=== PATIENT | male | born 1940 | race Caucasian/White ===

== ENCOUNTER → 2020-05-23 | Outpatient (CLI) | payer OTHER ==
[~2020-05-23] MED LIST: ATORVASTATIN CA20 MG PO; CARAFATE 1 GM TA1 GM PO; DOCUSATE SODIU100 MG PO; ELIQUIS 2.5 MG2.5 MG PO; FLOMAX 0.4 MG0.4 MG PO; LO-DOSE ASPIRIN81 MG PO; LOPRESSOR 25 MG25 MG PO; MOBIC15 MG PO; NORCO 10-325 T1 EACH PO; OMEPRAZOLE20 M1 PO
[2020-05-23 12:05] LABS: BUN/CREATININE RATIO 31 (0-10)
== END ==
LOC: LAB 11:21
PROVIDERS: Orthopaedic Surgery
DX: Z53.8 Procedure and treatment not carried out for other reasons (principal)
CPT/HCPCS: 80048; 86850; 86900; 86901

== ENCOUNTER 2020-05-24 06:55 | Day surgery (SDC) | payer OTHER ==
[~2020-05-24] VITALS: Ht 175.3 cm; Wt 88.5 kg
[2020-05-24] MEDS ORDERED: LO-DOSE ASPIRIN81 MG PO (07:45)
[2020-05-24] MEDS ORDERED: ATORVASTATIN CA20 MG PO (07:45)
[2020-05-24] MEDS ORDERED: CARAFATE 1 GM TA1 GM PO (07:46)
[2020-05-24] MEDS ORDERED: LOPRESSOR 25 MG25 MG PO (07:46)
[2020-05-24] MEDS ORDERED: FLOMAX 0.4 MG0.4 MG PO (07:47)
[2020-05-24] MEDS ORDERED: OMEPRAZOLE20 M1 PO (07:47)
[2020-05-24] MEDS ORDERED: MOBIC15 MG PO (07:48)
[2020-05-25 05:56] LABS: HEMOGLOBIN 13.5 gm/dl (14.0-17.5); RED BLOOD COUNT 4.5 M/UL (4.20-5.50); WHITE BLOOD COUNT 11.1 K/UL (4.5-11.0)
[2020-05-25 06:13] LABS: BUN/CREATININE RATIO 33 (0-10)
[2020-05-25] MEDS ORDERED: NORCO 10-325 T1 EACH PO (08:31)
--- NOTE | 2020-05-25 13:00 | NUR ---
BLADDER SCANNED PT AT 1150 DUE TO LACK OF URINE OUTPUT. 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 THIS WAS UNSUCCESSFUL . RECEIVED VERBAL ORDER TO STRAIGHT CATH PATIENT PER ABHIJEET HERNANDES WHO WAS SEING THE PT FOR ORTHO. BLADDER SCANNER SHOWED 542 ML. URINE OUT FROM STRAIGHT CATH WAS 500 ML. OK TO CONTINUE STRAIGHT CATH Q6H PRN PER ABHIJEET HERNANDES.
--- NOTE | 2020-05-26 05:49 | NUR ---
STARTING AT 1900 ON 05/25/20, POLAR ICE WAS PLACED TO LEFT KNEE. POLAR ICE WAS REMOVED AT 0315 ON 05/26/20 PER PT REQUEST AND WAS NOT PLACED BACK ON PER PT REQUEST. PT STATES, "I WILL PUT IT BACK ON LATER." WCTM
[2020-05-26 06:07] LABS: HEMOGLOBIN 13.4 gm/dl (14.0-17.5); RED BLOOD COUNT 4.4 M/UL (4.20-5.50); WHITE BLOOD COUNT 10.5 K/UL (4.5-11.0)
[2020-05-26 06:26] LABS: BUN/CREATININE RATIO 29 (0-10)
[2020-05-26] MEDS ORDERED: LOPRESSOR 25 MG25 MG PO (10:12)
[2020-05-26] MEDS ORDERED: DOCUSATE SODIU100 MG PO (10:12)
[2020-05-26] MEDS ORDERED: FLOMAX 0.4 MG0.4 MG PO (10:12)
[2020-05-26] MEDS ORDERED: ELIQUIS 2.5 MG2.5 MG PO (10:12)
== END 2020-05-26 16:42 | disposition home or self-care (01) ==
LOC: M/S 06:55 → OR 06:55 → M/S 06:55 → ZOBSOF 06:55 → EDSTATUS 08:00 → M/S 14:39 → ZOBSOF 14:39 → M/S 14:39 → OR 05-26 16:42
PROVIDERS: Orthopaedic Surgery
PROC: 0SRD0J9 Replacement of Left Knee Joint with Synthetic Substitute, Cemented, Open Approach (ICD-10-PCS; principal; 2020-05-24 08:00)
DX: M17.12 Unilateral primary osteoarthritis, left knee (principal); I47.1 Supraventricular tachycardia; N40.1 Benign prostatic hyperplasia with lower urinary tract symptoms; R33.8 Other retention of urine; I10 Essential (primary) hypertension; E78.5 Hyperlipidemia, unspecified; I25.10 Atherosclerotic heart disease of native coronary artery without angina pectoris; K21.9 Gastro-esophageal reflux disease without esophagitis; Z79.82 Long term (current) use of aspirin; Z79.899 Other long term (current) drug therapy
CPT/HCPCS: 36415; 73560; 80048; 81001; 85027; 86850; 86900; 86901; 97110-GP-CQ; 97116-GP-CQ; 97162; 97166; 97530-GP-CQ; 97535; C1776; J0592; J0690; J1100; J2001; J2270; J2704; J2710; J2795; J3010; J7120